=== PATIENT | male | born 1955 | race Caucasian/White ===

== ENCOUNTER 2017-10-08 20:54 | Observation (INO) | payer BC, OTHER ==
[2017-10-08] MEDS ORDERED: Nitroglycerin 0.4 MG TAB (25 Tab Bottle) ONE (21:39)
[2017-10-08 21:46] LABS: #Basophils 0.1 thou/uL (0.0-0.2); #Eosinphils 0.1 thou/uL (0.0-0.7); #Lymphocytes 1.7 thou/uL (1.20-3.40); #Monocytes 0.6 thou/uL (0.11-0.59); #Neutrophils 4.9 thou/uL (1.40-6.50); %Basophils 1.5 % (0.0-1.0); %Eosinophils 1.2 % (0.0-10.0); %Lymphocytes 23.1 % (21.0-51.0); %Monocytes 8.5 % (0.0-10.0); %Neutrophils 65.8 % (42.0-75.0); Hemoglobin 14.4 g/dL (14.0-18.0); Mean Corpuscular HGB CONC 34.4 g/dL (32.0-36.0); Mean Corpuscular Hemoglobin 32.1 pg (27.0-31.0); Mean Corpuscular Volume 93.4 fL (78.0-98.0); Mean Platelet Volume 7.8 fL (7.4-10.4); Platelet Count 188 thou/uL (130-400); White Blood Cell (WBC) Count 7.5 thou/uL (4.8-10.8)
[2017-10-08 22:03] LABS: ALT (SGPT) 16 U/L (8-55); AST (SGOT) 19 U/L (5-34); Albumin 4.5 g/dL (3.4-4.8); Alkaline Phosphatase 87 U/L (40-150); Anion Gap 14 mmol/L (10-20); BUN (Urea Nitrogen) 21 mg/dL (8.4-25.7); CK (CPK) 76 U/L (30-200); Calc. Creatinine Clearance 0 mL/min (70-130); Calcium 9.5 mg/dL (7.8-10.44); Carbon Dioxide 27 mmol/L (23-31); Chloride 101 mmol/L (98-107); Estimated GFR-MDRD 56; Globulin 2.8 g/dL (2.4-3.5); Glucose 162 mg/dL (80-115); Lipase 32 U/L (8-78); Potassium 4.2 mmol/L (3.5-5.1); Protein, Total 7.3 g/dL (5.8-8.1); Sodium 138 mmol/L (136-145)
[2017-10-08 22:06] LABS: CKMB 1.2 ng/mL (0-6.6); Troponin I Less than 0.010 ng/mL (< 0.028)
[2017-10-09 01:44] LABS: Troponin I Less than 0.010 ng/mL (< 0.028)
[2017-10-09 02:09] VITALS: BMI 23.6
[2017-10-09 04:45] LABS: Troponin I Less than 0.010 ng/mL (< 0.028)
[2017-10-09] MEDS ORDERED: Dextrose 5% in Water 1,000 ML IV PRN (10:27)
[2017-10-09] MEDS ORDERED: Milk Of Magnesia 30 ML UDCUP PO PRN (10:27)
[2017-10-09] MEDS ORDERED: Acetaminophen 325 MG TAB PO PRN (10:27)
[2017-10-09] MEDS ORDERED: Ondansetron HCl/PF 4 MG/2 ML Vial IVP PRN (10:27)
[2017-10-09] MEDS ORDERED: Insulin Regular 300 UNITS/3 ML VIAL SC PRN ×2 (10:27)
[2017-10-09] MEDS ORDERED: Dextrose 50% Abboject 50 ML SYRINGE SLOW IVP PRN (10:27)
[2017-10-09] MEDS ORDERED: Nitroglycerin 0.4 MG TAB (25 Tab Bottle) PO PRN (10:27)
[2017-10-09] MEDS ORDERED: Calcium Carbonate 500 MG ChewTAB PO PRN (10:27)
[2017-10-09] MEDS ORDERED: Ondansetron ODT 4 MG TAB PO PRN (10:27)
[2017-10-09 10:33] LABS: Magnesium 2.6 mg/dL (1.6-2.6); Phosphorus 3.6 mg/dL (2.3-4.7)
--- NOTE | 2017-10-09 15:02 | HP ---
DATE OF ADMISSION: 10/09/2017 PRIMARY CARE PHYSICIAN: Danny Zayas M.D. PRIMARY ACQUISITION PROFESSIONAL: Ruben Yarbrough M.D. CHIEF COMPLAINT: Chest discomfort. HISTORY OF PRESENT ILLNESS: The patient is a 62-year-old male with coronary artery disease, hyperten noelle and diabetes mellitus type 2, presented to the emergency room with chest discomfort. The chest discomfort started yesterday when he sat down after doing yard work. It lasted for 10 minutes or so. It was pressure-like, without any radiation. It was mild in intensity. No aggravating relieving f actor reported. No nausea, vomiting, diaphoresis, palpitations, shortness of breath reported. His H eartScore was 4. He underwent a cardiac catheterization in 2013 that showed 60%-70% stenosis in the first diagonal, which is unchanged from the cath from 2004. He is chest pain free at this time. He received aspirin and sublingual nitroglycerin in the emergency room. PAST MEDICAL HISTORY: 1. Diabetes mellitus type 2. 2. Hypertension. 3. Coronary artery disease. 4. Dyslipidemia. 5. Family history of heart disease. PAST SURGICAL HISTORY: 1. Cardiac catheterization x2. 2. Cholecystectomy. 3. Lithotripsy. ALLERGIES: The patient is allergic to METFORMIN that causes heart palpitations. CURRENT HOME MEDICATIONS: Aspirin 81 mg daily, glipizide ER 2.5 mg daily, Onglyza 2.5 mg daily, simv astatin 40 mg at bedtime, Actos 30 mg daily, lisinopril 5 mg daily. SOCIAL HISTORY: The patient currently lives at home. Denies any current use of smoking, alcohol or drug use. He is full code, makes his own decisions with the help of his family. FAMILY HISTORY: Positive for heart disease. REVIEW OF SYSTEMS: The following complete review of systems was negative, unless otherwise mentioned in the HPI or below: Constitutional: Weight loss or gain, ability to conduct usual activities. Sk in: Rash, itching. Eyes: Double vision, pain. ENT/Mouth: Nose bleeding, neck stiffness, pain, te nderness. Cardiovascular: Palpitations, dyspnea on exertion, orthopnea. Respiratory: Shortness of breath, wheezing, cough, hemoptysis, fever or night sweats. Gastrointestinal: Poor appetite, abdom inal pain, heartburn, nausea, vomiting, constipation, or diarrhea. Genitourinary: Urgency, frequenc y, dysuria, nocturia. Musculoskeletal: Pain, swelling. Neurologic/Psychiatric: Anxiety, depressio n. Allergy/Immunologic: Skin rash, bleeding tendency. PHYSICAL EXAMINATION: VITAL SIGNS: Temperature 97.4, respirations 16, pulse rate of 58, blood pressure 145/74 with O2 satu ration 96% on room air. GENERAL: A 62-year-old male, in no apparent distress. HEENT: Head atraumatic, normocephalic. Sclerae are anicteric. Moist mucous membrane. No oral lesi on. NECK: Supple, no JVD, no carotid bruit. LUNGS: Clear to auscultation bilaterally. No wheezing, rales or rhonchi. HEART: S1, S2 present. Regular rate and rhythm. No murmur, rubs or gallops appreciated. ABDOMEN: Soft, nontender, bowel sounds present. EXTREMITIES: No edema or calf tenderness. NEUROLOGIC: Grossly nonfocal, moves all 4 extremities. PSYCHIATRIC: Alert, awake, oriented x3. SKIN: Warm and dry. LYMPH NODES: No palpable lymph nodes in the neck. LABORATORY FINDINGS: Troponins were normal. BUN 21, creatinine 1.29. TSH was normal. Magnesium an d phosphorus in normal range. Sodium 138, potassium 4.2. WBC 7.8 with hemoglobin 14.4. IMAGING: EKG by my review showed sinus bradycardia without significant ST-T wave changes. IMPRESSION: 1. Chest discomfort in a 62-year-old male with diabetes mellitus type 2, hypertension, coronary tennille ry disease. I discussed with Dr. Resendez who is covering for Dr. Yarbrough. A stress test was elisabeth mmended, which will be done. We will continue aspirin and statin. 2. Diabetes mellitus type 2. We will start him on insulin sliding scale. The patient is currently n.p.o. We will hold glipizide. 3. Chronic kidney disease stage 3. We will avoid nephrotoxic agents. 4. Hypertension, diet controlled. 5. Hyperlipidemia. We will continue statins. 6. Coronary artery disease. Plan as discussed above. Plan of care was discussed with the patient in detail. He stated understanding.
[2017-10-09] MEDS ORDERED: Docusate 100 MG CAP PO SCH (21:00)
[2017-10-09] MEDS ORDERED: Famotidine 20 MG TAB PO SCH (21:00)
[2017-10-09] MEDS ORDERED: Atorvastatin Calcium 20 MG TAB PO SCH (21:00)
[2017-10-09 21:23] VITALS: BP 145/75; TEMP 97.8
--- NOTE | 2017-10-09 21:54 | NM ---
NUCLEAR MEDICINE CARDIAC MYOCARDIAL PERFUSION SPECT EJECTION FRACTION STUDY WALL MOTION CINE: 10/09/17 HISTORY: 62-year-old male with coronary artery disease, hypertension, diabetes mellitus, and dyslipidemia, pre sents with acute chest pain. TECHNIQUE: Number of days: 1 Rest study: Tc99m sestamibi (Cardiolite) dose: 9.0 mCi Exercise stress: treadmill. Stress study: Tc99m sestamibi (Cardiolite) dose: 27.0 mCi FINDINGS: CARDIAC (MYOCARDIAL PERFUSION) SPECT Distribution of sestamibi is homogeneous throughout the left ventricle, with no fixed or reversible m yocardial perfusion defects. EJECTION FRACTION STUDY EF = 66% WALL MOTION CINE The left ventricular wall motion is normal. There is normal systolic wall thickening. IMPRESSION: Normal. emilie[] POS: AKIKO
[2017-10-10] MEDS ORDERED: Aspirin 81 mg Enteric Coated Tablet PO SCH (09:00)
[2017-10-10] MEDS ORDERED: Aspirin 325 MG TAB PO SCH (09:00)
--- NOTE | 2017-10-10 09:14 | DIS ---
DATE OF DISCHARGE: 10/09/2017 at 2200. DISCHARGE MEDICATIONS: Same as admission medications. FOLLOWUP: 1. Follow up with primary care physician, Dr. Zayas, in 1 week. 2. Follow up with Dr. Yarbrough as outpatient. BRIEF HOSPITAL COURSE: Patient is a 62-year-old male with coronary artery disease; hypertension; and diabetes mellitus, type 2; presented to the hospital with chest discomfort. Please refer to the his tory and physical for further details. The patient was admitted to the hospital with a diagnosis of chest discomfort, rule out acute coronar y syndrome. Serial cardiac enzymes were negative. The case was discussed with on-call Cardiology, Lb Resendez, who was covering for Dr. Yarbrough. A stress test was recommended by Dr. Resendez. Str ess test was done, which was negative. The stress test report came around 10:00 p.m. The patient is chest pain free and appears stable for discharge. No medication changes were made. Please refer to the history and physical dictated by me earlier today for further details. FINAL DIAGNOSES: 1. Chest discomfort, acute coronary syndrome ruled out. 2. Negative Cardiolite stress test. 3. Diabetes mellitus, type 2. 4. Hypertension. 5. Dyslipidemia. 6. Family history of heart disease. 7. Chronic kidney disease, stage 3. Plan of care was discussed with the patient in detail. He stated understanding.
--- NOTE | 2017-10-12 14:02 | STRESS ---
Acquisition Time: 2017-10-09 14:49:39 Total Exercise Time: 00:08:00 Test Indications: CHEST PAIN Medications: Protocol: ANGIE Max HR: 137 BPM 87% of Pred: 156 BPM Max BP: 178/062 mmHG Max Work Load: 10.1 METS RESTING ECG: NORMAL SINUS RHYTHM AT 55 BPM WITH POOR R-WAVE PROGRESSION AND SEPTAL INFARCTION SYMPTOMS: DYSPNEA ON EXERTION NORMAL BP RESPONSE ECTOPY: RARE PVC'S ECG STRESS: NO SIGNIFICANT CHANGES INTERPRETATION: NEGATIVE GXT/AWAIT NUCLEAR IMAGES FOR DEFINITIVE DIAGNOSIS Confirmed by JAX HSU ([id number]), multimedia editor EMMANUELLE VALDEZ ([id number]) on 10/12/2017 2:01:54 PM Referred By: MD Zach CHRISTY Confirmed By:JAX HSU
== END 2017-10-09 23:15 | disposition home or self-care (01) ==
LOC: ERS 20:54 → 2SE 22:59
PROVIDERS: ADMIT Hospitalist; ATTEND Hospitalist
DX: R07.89 Other chest pain (principal); I25.10 Atherosclerotic heart disease of native coronary artery without angina pectoris; I12.9 Hypertensive chronic kidney disease with stage 1 through stage 4 chronic kidney disease, or unspecified chronic kidney disease; E11.22 Type 2 diabetes mellitus with diabetic chronic kidney disease; N18.3 Chronic kidney disease, stage 3 (moderate); E78.5 Hyperlipidemia, unspecified; Z79.82 Long term (current) use of aspirin; Z79.84 Long term (current) use of oral hypoglycemic drugs; Z79.899 Other long term (current) drug therapy; Z88.8 Allergy status to other drugs, medicaments and biological substances; Z82.49 Family history of ischemic heart disease and other diseases of the circulatory system
CPT/HCPCS: 36415; 36416; 78452; 80053; 82550; 82553; 83690; 83735; 84100; 84443; 84484; 85025; 93005; 93017; 94760; A9500; G0378

== ENCOUNTER 2020-02-29 06:27 | Outpatient (CLI) | payer OTHER ==
[2020-02-29 18:33] LABS: SARS-CoV-2 MS2 Positive; SARS-CoV-2 N Gene Negative; SARS-CoV-2 S Gene Negative; SARS-CoV-2 by NAA Not Detected (NotDetected); SARS-CoV-2 orf1ab Negative
== END 2020-02-29 06:28 | disposition home or self-care (01) ==
LOC: LABBT 06:27
PROVIDERS: ATTEND Internal Medicine Gastroenterology
DX: Z01.812 Encounter for preprocedural laboratory examination (principal); Z20.828 Contact with and (suspected) exposure to other viral communicable diseases; K92.2 Gastrointestinal hemorrhage, unspecified
CPT/HCPCS: 87635; U0003

== ENCOUNTER 2020-03-06 05:47 | Day surgery (SDC) | payer OTHER ==
[2020-02-29 13:09] VITALS: BMI 24.3
--- NOTE | 2020-03-05 17:09 | HP ---
HISTORY OF PRESENT ILLNESS: This 64-year-old male comes for a colonoscopy for evaluation of occult GI bleeding. The patient was found to have positive stool for occult blood on routine physical examination. The patient has had no specific GI symptoms. He has no abdominal pain. No history of hematochezia. There is no family history of colon cancer. The patient is undergoing colonoscopy because of occult GI bleeding. MEDICAL ILLNESSES: 1. Diabetes mellitus. 2. Hyperlipidemia. 3. Kidney stones. 4. Sleep disorder. 5. Glaucoma. 6. Chronic acid reflux. 7. Stable coronary artery disease. PHYSICAL EXAMINATION: VITAL SIGNS: Weight is 178 pounds. Pulse is 70, blood pressure 120/70. HEENT: Conjunctivae are clear. CARDIOVASCULAR SYSTEM: Normal heart sounds. LUNGS: Clear to auscultation. ABDOMEN: Soft. No organomegaly. No tenderness. No masses. EXTREMITIES: Reveal no edema. ADMITTING DIAGNOSIS: A 64-year-old male with occult gastrointestinal bleeding. PLAN: Colonoscopy. Job ID: [id number] MTDD
[2020-03-06] MEDS ORDERED: PROPOFOL 200 MG/20 ML VIAL ONE (10:18)
--- NOTE | 2020-03-06 10:31 | OP ---
DATE OF PROCEDURE: 03/06/2020 PREOPERATIVE DIAGNOSIS: Occult gastrointestinal bleeding. POSTOPERATIVE DIAGNOSES: 1. Sessile sigmoid polyp. 2. Hemorrhoids. 3. Very tortuous, redundant colon. PROCEDURE PERFORMED: Colonoscopy with polypectomy. DESCRIPTION OF PROCEDURE: The patient was placed on his left lateral position and was given sedation by Anesthesia Department. Rectal exam was done before the scope was advanced into the rectum. No lesions felt on rectal exam. A Pentax video colonoscope was introduced into the rectum and advanced all the way into the cecum. The patient's colon was very redundant, tortuous. There were too many loops and bends. The mucosa appeared normal throughout the colon. The appendiceal orifice, ileocecal valve, and cecum were well seen. No pathology seen. Withdrawal of scope in the cecum to ascending colon, hepatic flexure, no lesion seen. The transverse colon, splenic flexure, descending colon, high sigmoid colon, no lesion seen. A 1 cm sessile lower sigmoid colon polyp removed with snare cautery with good hemostasis. The rectum showed hemorrhoids. DISCHARGE PLANNING: This is a 64-year-old male found to have positive occult blood in the stool. He underwent colonoscopy and polypectomy. DISCHARGE RECOMMENDATIONS: 1. The patient was advised to call me if he develops abdominal pain, hematochezia, or fever. 2. In the absence of any of the above symptoms, he will come back to me in 2 weeks. Job ID: [id number]
== END 2020-03-06 10:00 | disposition home or self-care (01) ==
LOC: SDC 05:47
PROVIDERS: ATTEND Internal Medicine Gastroenterology
PROC: 0DBN8ZX Excision of Sigmoid Colon, Via Natural or Artificial Opening Endoscopic, Diagnostic (ICD-10-PCS; principal; 2020-03-06)
DX: K63.5 Polyp of colon (principal); K64.9 Unspecified hemorrhoids; Q43.8 Other specified congenital malformations of intestine; E11.9 Type 2 diabetes mellitus without complications; E78.5 Hyperlipidemia, unspecified; G47.9 Sleep disorder, unspecified; K21.9 Gastro-esophageal reflux disease without esophagitis; I25.10 Atherosclerotic heart disease of native coronary artery without angina pectoris; Z79.82 Long term (current) use of aspirin; Z79.84 Long term (current) use of oral hypoglycemic drugs; Z79.899 Other long term (current) drug therapy; Z88.8 Allergy status to other drugs, medicaments and biological substances
CPT/HCPCS: 88305; J2704

== ENCOUNTER 2022-04-22 14:06 | Outpatient (CLI) | payer MEDICARE, OTHER | END 2022-04-22 14:07 | disposition home or self-care (01) | LOC: BICMAMMO 14:06 | PROVIDERS: ATTEND Family Medicine | DX: M81.0 Age-related osteoporosis without current pathological fracture (principal); M85.89 Other specified disorders of bone density and structure, multiple sites | CPT/HCPCS: 77080 ==

== ENCOUNTER 2023-04-28 13:54 | Outpatient (CLI) | payer MEDICARE | END 2023-04-28 13:55 | disposition home or self-care (01) | LOC: BICMAMMO 13:54 | PROVIDERS: ATTEND Family Medicine | DX: M81.0 Age-related osteoporosis without current pathological fracture (principal); M85.89 Other specified disorders of bone density and structure, multiple sites | CPT/HCPCS: 77080 ==